=== PATIENT | male | born 1980 | race African-American/Black ===

== ENCOUNTER 2017-04-06 13:59 | Emergency (ER) | payer SELFPAY ==
[~2017-04-06] VITALS: Ht 182.9 cm; Wt 82.6 kg
[2017-04-06 15:00] LABS: BASOPHIL COUNT 0.1 K/uL (0-0.1); EOSINOPHIL (%) 0.7 % (0-5); EOSINOPHIL COUNT 0.1 K/uL (0-0.3); HEMATOCRIT 43.2 % (38.0-50.0); IMMATURE GRANULOCYTE (%) 0.2 % (0.0-0.7); INSTRUMENT ABS NEUTROPHIL CT 4.2 K/uL; LYMPHOCYTE COUNT 3.9 K/uL (1.0-2.8); MCH 32.3 PG (29.0-34.0); MCHC 34.3 G/DL (30.0-36.0); MCV 94.3 FL (86-99); MEAN PLAT.VOLUME 10.3 uM^3 (9.0-12.4); MONOCYTE (%) 6.1 % (3-12); MONOCYTE COUNT 0.5 K/uL (0-0.8); NEUTROPHIL (%) 47.8 % (45-76); NEUTROPHIL COUNT 4.2 K/uL (1.8-6.4); PLATELET COUNT 171 K/uL (156-360); RBC DIS.WIDTH-CV 12.4 % (11.8-14.6); RBC DIS.WIDTH-SD 42.8 % (39-53); RED BLOOD COUNT 4.58 M/uL (4.00-5.50); WHITE BLOOD COUNT 8.7 K/uL (4.1-10.2)
[2017-04-06 15:09] LABS: CHLORIDE 104 mEq/L (99-109); POTASSIUM 4.3 mEq/L (3.7-5.4); SODIUM 139 mEq/L (136-147)
[2017-04-06 15:11] LABS: GLUCOSE 171 mg/dL (70-99)
[2017-04-06 15:12] LABS: ANION GAP 13 MEQ/L (2-14)
[2017-04-06 15:14] LABS: GFR ESTIMATE (CALCULATED) > 59 mL/min/
[2017-04-06 15:15] LABS: TROP-I INTERPRETATION NEGATIVE; TROPONIN-I < 0.01 ng/mL (0.0-0.30)
[2017-04-06 15:15] LABS: UREA NITROGEN (BUN) 10 mg/dL (9-23)
[2017-04-06 15:17] LABS: CREATINE KINASE 450 IU/L (1-294); TOTAL CK 450 IU/L (1-294)
[2017-04-06 15:23] LABS: CK-MB 1.7 ng/mL (0.0-4.9)
[2017-04-06] MEDS ORDERED: MOTRIN800 MG PO (16:16)
[2017-04-06] MEDS ORDERED: FLEXERIL10 MG PO (16:16)
[2017-04-06 18:04] VITALS: BP 158/101
== END 2017-04-06 18:04 | disposition home or self-care (01) ==
LOC: EME 13:59
PROVIDERS: Emergency Medicine
DX: S46.912A Strain of unspecified muscle, fascia and tendon at shoulder and upper arm level, left arm, initial encounter (principal); X58.XXXA Exposure to other specified factors, initial encounter
CPT/HCPCS: 71010; 80048; 82550; 82553; 84484; 85025; 93005; 99281; 99285; J1885; J2270; J7030